=== PATIENT | male | born 1960 | race Caucasian/White ===

== ENCOUNTER → 2017-05-23 | Outpatient (CLI) | payer OTHER ==
[~2017-05-23] MED LIST: APPLE CIDER VINEGAR PO; BERBERINE PO; CINN500C2 PO; GABA300C10 PO; GLIP10TA13 PO; INSU100V13 SC; LISI-170 PO; METF500T4 PO; MULT-516 PO; SUPER B COMPLEX PO; [UNRECOGNIZED DRUG - OTHER] PO
[2017-05-23 11:50] LABS: ASPARTATE AMINO TRANSFERASE 21 U/L (15-37); BLOOD UREA NITROGEN 14 mg/dL (7-18)
[2017-05-23 11:51] LABS: HEMATOCRIT 50.2 % (39.2-51.8); HEMOGLOBIN 17.1 g/dL (13.7-18.0); WHITE BLOOD COUNT 9.4 x10^3/uL (3.4-10)
== END | disposition home or self-care (01) ==
LOC: STAR 10:30
PROVIDERS: ATTEND Neurological Surgery
DX: Z01.818 Encounter for other preprocedural examination (principal); E11.9 Type 2 diabetes mellitus without complications; M47.892 Other spondylosis, cervical region; R79.1 Abnormal coagulation profile
CPT/HCPCS: 36415; 71020; 80053; 85025; 85610; 85730; 93005